=== PATIENT | female | born 1935 | race Caucasian/White ===

== ENCOUNTER 2017-04-08 09:57 | Observation (INO) | payer MEDICARE, BC ==
[~2017-04-08 09:57] MED LIST: ALBUTEROL SULF8.5 GM IH; ALDACTONE25 MG PO; ALLOPURINOL100 MG PO; ATROVENT 0.03%30 ML; BUMEX1 MG PO; COQ-10100 MG PO; COQ-1030 MG PO; COUMADIN2.5 MG PO; COUMADIN5 MG PO; DELTASONE10 MG PO; EDECRIN25 MG PO; METOPROLOL SUC100 MG PO; MICRO-K 1010 MEQ PO; MICRO-K10 MEQ PO; NYSTATIN25 GM TOP; OMEPRAZOLE20 M2 PO; OMNICEF300 MG PO; RED YEAST RICE600 MG PO; SYMBICORT 80-46.9 GM IH; SYSTANE GEL EYE10 ML OP; VITAMIN B121000 MCG PO; VITAMIN D31000 UNIT PO; [UNRECOGNIZED DRUG - OTHER]; [UNRECOGNIZED DRUG - OTHER] PO
[2017-04-08] MEDS ORDERED: NEURONTIN100 M1 PO (10:16)
[2017-04-08] MEDS ORDERED: SYMBICORT 80-41 PUFF INH (10:16)
[2017-04-08] MEDS ORDERED: POTASSIUM CHLO10 ME1 PO (10:16)
[2017-04-08] MEDS ORDERED: ALDACTONE25 M1 PO (10:17)
[2017-04-08] MEDS ORDERED: VENTOLIN HFA18 G2 INH (10:17)
[2017-04-08] MEDS ORDERED: LOPRESSOR100 M1 PO (10:18)
[2017-04-08] MEDS ORDERED: BUMETANIDE2 M2 PO (10:19)
[2017-04-08] MEDS ORDERED: ZYLOPRIM100 M1 PO (10:19)
[2017-04-08] MEDS ORDERED: IPRATROPIUM BRO30 M1 (10:21)
[2017-04-08] MEDS ORDERED: COQ-10100 M1 PO (10:21)
[2017-04-08] MEDS ORDERED: VITAMIN D31000 UNI3 PO (10:22)
[2017-04-08] MEDS ORDERED: RED YEAST RICE600 M2 PO (10:22)
[2017-04-08] MEDS ORDERED: VITAMIN B-121000 MC1 PO (10:22)
[2017-04-08] MEDS ORDERED: CLARITIN10 M6 PO (10:22)
[2017-04-08] MEDS ORDERED: TYLENOL EXTRA500 M1 PO (10:23)
[2017-04-08] MEDS ORDERED: SYSTANE 0.3-0.1 EACH EACH EYE (10:23)
[2017-04-08] MEDS ORDERED: NYSTATIN15 G1 TP (10:24)
[2017-04-08] MEDS ORDERED: COUMADIN5 M2 PO ×2 (10:25)
[2017-04-08 11:52] LABS: URINE BILIRUBIN NEGATIVE (NEG); URINE BLOOD NEGATIVE (NEG); URINE GLUCOSE (UA) NEGATIVE (NEG); URINE KETONE NEGATIVE (NEG); URINE LEUKOCYTE ESTERASE POSITIVE (NEG); URINE NITRITE POSITIVE (NEG); URINE PROTEIN NEGATIVE (NEG); URINE SPECIFIC GRAVITY 1.015 (1.003-1.030)
[2017-04-08 11:57] LABS: URINE APPEARANCE CLEAR; URINE COLOR YELLOW
[2017-04-08 12:01] LABS: URINE BACTERIA 4+; URINE EPITHELIAL CELLS 0-2 /[HPF] (0-10); URINE RBC 0 /[HPF] (0-5)
[2017-04-08 12:07] LABS: BASO % 0.4 % (0-2); EOS % 0.6 % (0-7); EOSINOPHIL ABSOLUTE COUNT 0.1 tho/cmm (0.0-0.7); HCT-HEMATOCRIT 36.2 % (34.0-49.0); HGB-HEMOGLOBIN 12.1 gm/dl (12.0-15.5); IMMATURE GRANULOCYTES ABSOLUTE 0.01 tho/cmm (0-0.03); IMMATURE GRANULOCYTES PERCENT 0.1 % (0-0.3); LYMPH % 12.8 % (20-45); LYMPH ABSOLUTE COUNT 1.1 tho/cmm (0.8-4.5); MCHC MEAN CORPUSCULAR HGB CONC 33.4 % (32.0-36.0); MCV (MEAN CELL VOLUME) 92.8 fl (82.0-96.0); MONO % 6.6 % (0-12); MONOCYTE ABSOLUTE COUNT 0.6 tho/cmm (0.0-1.2); NEUTROPHIL ABSOLUTE COUNT 6.7 tho/cmm (1.6-8.0); NEUTROPHIL-AUTOMATED 6.7 tho/cmm (1.6-8.0); NEUTROPHILS % 79.5 % (40-80); PLATELET COUNT 160 tho/cmm (150-450); RED CELL DISTRIBUTION WIDTH 13.8 % (12.4-16.4); WHITE BLOOD COUNT 8.4 tho/cmm (4.0-10.0)
[2017-04-08 12:13] LABS: INR 3.4 INR (0.9-1.1); PROTHROMBIN TIME 40.7 SECONDS (9.0-13.6)
[2017-04-08 12:20] LABS: ALB/GLOB RATIO 0.8 (0.8-2.0); ALBUMIN 3.5 g/dl (3.5-5.0); ALKALINE PHOSPHATASE 100 U/L (33-138); ALT/SGPT 20 U/L (12-78); ANION GAP 11 mmol/L (0-20); AST/SGOT 18 U/L (10-40); BILIRUBIN,TOTAL 1.4 mg/dl (0-1.5); BLOOD UREA NITROGEN 23 mg/dl (6-24); CALCIUM 9.9 mg/dl (8.5-10.5); CARBON DIOXIDE-VENOUS 32 mmol/L (22-32); CHLORIDE 98 mmol/l (96-110); CREATININE 0.84 mg/dl (0.50-1.10); GLUCOSE 167 mg/dL (70-110); POTASSIUM 4.1 mmol/L (3.7-5.1); SODIUM 137 mmol/L (135-145); eGFR VALUE FOR BLACK 77 mL/Min
[2017-04-09 05:30] LABS: INR 3.2 INR (0.9-1.1); PROTHROMBIN TIME 38.9 SECONDS (9.0-13.6)
[2017-04-09 05:32] LABS: BASO % 0.7 % (0-2); BASO ABSOLUTE COUNT 0.1 tho/cmm (0.0-0.2); EOS % 1.9 % (0-7); EOSINOPHIL ABSOLUTE COUNT 0.1 tho/cmm (0.0-0.7); HCT-HEMATOCRIT 34.2 % (34.0-49.0); HGB-HEMOGLOBIN 11.3 gm/dl (12.0-15.5); IMMATURE GRANULOCYTES ABSOLUTE 0.01 tho/cmm (0-0.03); IMMATURE GRANULOCYTES PERCENT 0.1 % (0-0.3); LYMPH % 23.8 % (20-45); LYMPH ABSOLUTE COUNT 1.6 tho/cmm (0.8-4.5); MCH (MEAN CORPUSCULAR HGB) 30.7 pg (28.0-32.0); MCV (MEAN CELL VOLUME) 92.9 fl (82.0-96.0); MEAN PLATELET VOLUME 10.2 cmc (9.4-12.4); MONO % 8.3 % (0-12); MONOCYTE ABSOLUTE COUNT 0.6 tho/cmm (0.0-1.2); NEUTROPHIL ABSOLUTE COUNT 4.4 tho/cmm (1.6-8.0); NEUTROPHIL-AUTOMATED 4.4 tho/cmm (1.6-8.0); NEUTROPHILS % 65.2 % (40-80); PLATELET COUNT 161 tho/cmm (150-450); RED BLOOD COUNT 3.68 mil/cmm (4.00-5.20); RED CELL DISTRIBUTION WIDTH 13.7 % (12.4-16.4); WHITE BLOOD COUNT 6.8 tho/cmm (4.0-10.0)
[2017-04-09 05:38] LABS: ANION GAP 10 mmol/L (0-20); BLOOD UREA NITROGEN 25 mg/dl (6-24); CALCIUM 9.3 mg/dl (8.5-10.5); CARBON DIOXIDE-VENOUS 31 mmol/L (22-32); CHLORIDE 97 mmol/l (96-110); CREATININE 0.86 mg/dl (0.50-1.10); GLUCOSE 149 mg/dL (70-110); POTASSIUM 4.2 mmol/L (3.7-5.1); SODIUM 134 mmol/L (135-145); eGFR VALUE FOR BLACK 74 mL/Min
[2017-04-09] MEDS ORDERED: LOVENOX80 MG/0.1 SC (15:25)
[2017-04-09] MEDS ORDERED: ULTRAM50 M1 PO (15:37)
[2017-04-14] MEDS ORDERED: COLACE100 M1 PO (15:41)
[2017-04-14] MEDS ORDERED: MEDS (15:43)
[2017-04-14] MEDS ORDERED: AUGMENTIN 500-1 EAC2 PO (15:44)
== END 2017-04-09 16:28 ==
LOC: EDMED 09:57 → EMR2 14:28 → CAR1 15:55
PROVIDERS: Emergency Medicine; Family Medicine; Internal Medicine; ADMIT Internal Medicine
DX: M51.17 Intervertebral disc disorders with radiculopathy, lumbosacral region (principal); J45.909 Unspecified asthma, uncomplicated; I27.2 Other secondary pulmonary hypertension; I48.2 Chronic atrial fibrillation; E11.9 Type 2 diabetes mellitus without complications; I10 Essential (primary) hypertension; N20.0 Calculus of kidney; Z79.01 Long term (current) use of anticoagulants; Z79.899 Other long term (current) drug therapy; Z88.1 Allergy status to other antibiotic agents; Z88.2 Allergy status to sulfonamides; Z88.5 Allergy status to narcotic agent; Z88.8 Allergy status to other drugs, medicaments and biological substances; Z86.718 Personal history of other venous thrombosis and embolism; Z90.710 Acquired absence of both cervix and uterus; Z98.890 Other specified postprocedural states
CPT/HCPCS: G0378; G8978-GP-CK; G8979-GP-CJ; G8980-GP-CK; G8987-GO-CK; G8988-GO-CJ; G8989-GO-CK; J2270

== ENCOUNTER 2017-04-15 09:01 | Inpatient (IN) | payer MEDICARE, BC ==
[~2017-04-15 09:01] MED LIST changes: +ALDACTONE25 M1 PO; +AUGMENTIN 500-1 EAC2 PO; +BUMETANIDE2 M2 PO; +CLARITIN10 M6 PO; +COLACE100 M1 PO; +COQ-10100 M1 PO; +COUMADIN5 M2 PO; +IPRATROPIUM BRO30 M1; +LOPRESSOR100 M1 PO; +LOVENOX80 MG/0.1 SC; +MEDS; +NEURONTIN100 M1 PO; +NYSTATIN15 G1 TP; +POTASSIUM CHLO10 ME1 PO; +RED YEAST RICE600 M2 PO; +SYMBICORT 80-41 PUFF INH; +SYSTANE 0.3-0.1 EACH EACH EYE; +TYLENOL EXTRA500 M1 PO; +ULTRAM50 M1 PO; +VENTOLIN HFA18 G2 INH; +VITAMIN B-121000 MC1 PO; +VITAMIN D31000 UNI3 PO; +ZYLOPRIM100 M1 PO
[2017-04-15] MEDS ORDERED: COUMADIN2.5 M1 PO (10:05)
[2017-04-15] MEDS ORDERED: COUMADIN5 M2 PO (10:06)
[2017-04-15 10:15] LABS: INR 1.1 INR (0.9-1.1); PROTHROMBIN TIME 12.2 SECONDS (9.0-13.6)
[2017-04-16 06:40] LABS: BASO % 0.1 % (0-2); HCT-HEMATOCRIT 33.6 % (34.0-49.0); HGB-HEMOGLOBIN 11.2 gm/dl (12.0-15.5); IMMATURE GRANULOCYTES ABSOLUTE 0.02 tho/cmm (0-0.03); IMMATURE GRANULOCYTES PERCENT 0.2 % (0-0.3); LYMPH % 8.7 % (20-45); LYMPH ABSOLUTE COUNT 0.8 tho/cmm (0.8-4.5); MCH (MEAN CORPUSCULAR HGB) 30.7 pg (28.0-32.0); MCHC MEAN CORPUSCULAR HGB CONC 33.3 % (32.0-36.0); MCV (MEAN CELL VOLUME) 92.1 fl (82.0-96.0); MEAN PLATELET VOLUME 9.9 cmc (9.4-12.4); MONO % 9.7 % (0-12); MONOCYTE ABSOLUTE COUNT 0.9 tho/cmm (0.0-1.2); NEUTROPHIL ABSOLUTE COUNT 7.7 tho/cmm (1.6-8.0); NEUTROPHIL-AUTOMATED 7.7 tho/cmm (1.6-8.0); NEUTROPHILS % 81.3 % (40-80); PLATELET COUNT 175 tho/cmm (150-450); RED BLOOD COUNT 3.65 mil/cmm (4.00-5.20); RED CELL DISTRIBUTION WIDTH 13.7 % (12.4-16.4); WHITE BLOOD COUNT 9.4 tho/cmm (4.0-10.0)
[2017-04-16 06:52] LABS: ALB/GLOB RATIO 0.7 (0.8-2.0); ALBUMIN 3.1 g/dl (3.5-5.0); ALKALINE PHOSPHATASE 80 U/L (33-138); ALT/SGPT 26 U/L (12-78); ANION GAP 14 mmol/L (0-20); AST/SGOT 22 U/L (10-40); BILIRUBIN,TOTAL 0.7 mg/dl (0-1.5); BLOOD UREA NITROGEN 24 mg/dl (6-24); CALCIUM 9.5 mg/dl (8.5-10.5); CARBON DIOXIDE-VENOUS 29 mmol/L (22-32); CHLORIDE 94 mmol/l (96-110); CREATININE 1.05 mg/dl (0.50-1.10); GLUCOSE 202 mg/dL (70-110); POTASSIUM 4.3 mmol/L (3.7-5.1); SODIUM 133 mmol/L (135-145); eGFR VALUE FOR BLACK 58 mL/Min
[2017-04-16] MEDS ORDERED: NORCO 5-325 TA1 EACH PO (12:31)
[2017-04-16] MEDS ORDERED: SENOKOT-S TABL1 EACH PO (12:32)
== END 2017-04-16 15:04 | disposition home health service (06) | DRG 519 ==
LOC: SHSC 09:01 → ORE 10:49 → PACU 13:09 → 5EA 13:27 → 5EB 13:30
PROVIDERS: Anesthesiology; Internal Medicine; ADMIT Orthopaedic Surgery Orthopaedic Surgery of the Spine
PROC: 0SB40ZZ Excision of Lumbosacral Disc, Open Approach (ICD-10-PCS; principal; 2017-04-15)
PROC: 00NY0ZZ Release Lumbar Spinal Cord, Open Approach (ICD-10-PCS; 2017-04-15)
DX: M51.17 Intervertebral disc disorders with radiculopathy, lumbosacral region (principal); I50.30 Unspecified diastolic (congestive) heart failure; E11.22 Type 2 diabetes mellitus with diabetic chronic kidney disease; I13.0 Hypertensive heart and chronic kidney disease with heart failure and stage 1 through stage 4 chronic kidney disease, or unspecified chronic kidney disease; Z79.01 Long term (current) use of anticoagulants; I48.91 Unspecified atrial fibrillation; E11.40 Type 2 diabetes mellitus with diabetic neuropathy, unspecified; N18.3 Chronic kidney disease, stage 3 (moderate); Z86.718 Personal history of other venous thrombosis and embolism; Z99.3 Dependence on wheelchair; I27.2 Other secondary pulmonary hypertension; Z88.1 Allergy status to other antibiotic agents; Z88.2 Allergy status to sulfonamides; Z88.8 Allergy status to other drugs, medicaments and biological substances; E53.8 Deficiency of other specified B group vitamins; E55.9 Vitamin D deficiency, unspecified

== ENCOUNTER 2017-05-02 11:32 | Inpatient (IN) | payer MEDICARE, BC ==
[~2017-05-02 11:32] MED LIST changes: +COUMADIN2.5 M1 PO; +NORCO 5-325 TA1 EACH PO; +SENOKOT-S TABL1 EACH PO
[2017-05-02] MEDS ORDERED: ZYLOPRIM100 M1 PO (12:07)
[2017-05-02] MEDS ORDERED: CO Q-10100 M2 PO (12:08)
[2017-05-02] MEDS ORDERED: [UNRECOGNIZED DRUG - OTHER] PO (12:09)
[2017-05-02] MEDS ORDERED: CLARITIN10 M6 PO (12:10)
[2017-05-02] MEDS ORDERED: POTASSIUM CHLO20 ME3 PO (12:10)
[2017-05-02] MEDS ORDERED: LOPRESSOR100 M1 PO (12:10)
[2017-05-02] MEDS ORDERED: NEURONTIN100 M1 PO (12:10)
[2017-05-02] MEDS ORDERED: SYMBICORT 80-41 PUFF INH (12:11)
[2017-05-02] MEDS ORDERED: RED YEAST RICE600 M2 PO (12:11)
[2017-05-02] MEDS ORDERED: SYSTANE 0.3-0.415 ML OP (12:11)
[2017-05-02] MEDS ORDERED: ALDACTONE25 M1 PO (12:11)
[2017-05-02 12:12] LABS: BASO % 0.6 % (0-2); BASO ABSOLUTE COUNT 0.1 tho/cmm (0.0-0.2); EOS % 2.5 % (0-7); EOSINOPHIL ABSOLUTE COUNT 0.2 tho/cmm (0.0-0.7); HCT-HEMATOCRIT 32.1 % (34.0-49.0); HGB-HEMOGLOBIN 10.8 gm/dl (12.0-15.5); IMMATURE GRANULOCYTES ABSOLUTE 0.02 tho/cmm (0-0.03); IMMATURE GRANULOCYTES PERCENT 0.2 % (0-0.3); LYMPH % 16.3 % (20-45); LYMPH ABSOLUTE COUNT 1.6 tho/cmm (0.8-4.5); MCH (MEAN CORPUSCULAR HGB) 30.9 pg (28.0-32.0); MCHC MEAN CORPUSCULAR HGB CONC 33.6 % (32.0-36.0); MCV (MEAN CELL VOLUME) 91.7 fl (82.0-96.0); MEAN PLATELET VOLUME 9.5 cmc (9.4-12.4); MONO % 10.2 % (0-12); NEUTROPHIL ABSOLUTE COUNT 6.7 tho/cmm (1.6-8.0); NEUTROPHIL-AUTOMATED 6.7 tho/cmm (1.6-8.0); NEUTROPHILS % 70.2 % (40-80); PLATELET COUNT 259 tho/cmm (150-450); RED CELL DISTRIBUTION WIDTH 14.6 % (12.4-16.4); WHITE BLOOD COUNT 9.5 tho/cmm (4.0-10.0)
[2017-05-02] MEDS ORDERED: DEMADEX20 M1 PO (12:12)
[2017-05-02] MEDS ORDERED: VITAMIN D31000 UNI4 PO (12:12)
[2017-05-02] MEDS ORDERED: VITAMIN B-121000 MC1 PO (12:12)
[2017-05-02] MEDS ORDERED: COUMADIN5 M2 PO (12:13)
[2017-05-02] MEDS ORDERED: COLACE100 M1 PO (12:14)
[2017-05-02] MEDS ORDERED: HYDROCODON-ACE1 EA16 PO (12:14)
[2017-05-02] MEDS ORDERED: CYCLOBENZAPRINE10 M1 PO (12:14)
[2017-05-02] MEDS ORDERED: NYSTATIN15 G1 TP (12:15)
[2017-05-02] MEDS ORDERED: IPRATROPIUM BRO30 M1 (12:15)
[2017-05-02 12:16] LABS: INR 1.5 INR (0.9-1.1); PROTHROMBIN TIME 18.2 SECONDS (9.0-13.6)
[2017-05-02] MEDS ORDERED: VENTOLIN HFA18 G2 INH (12:16)
[2017-05-02] MEDS ORDERED: ULTRAM50 M1 PO (12:16)
[2017-05-02] MEDS ORDERED: SENEXON-S TABL1 EAC1 PO (12:16)
[2017-05-02 12:36] LABS: ANION GAP 13 mmol/L (0-20); BLOOD UREA NITROGEN 26 mg/dl (6-24); CALCIUM 10.5 mg/dl (8.5-10.5); CARBON DIOXIDE-VENOUS 30 mmol/L (22-32); CHLORIDE 93 mmol/l (96-110); CREATININE 0.97 mg/dl (0.50-1.10); GLUCOSE 189 mg/dL (70-110); MAGNESIUM 2.2 mg/dl (1.8-2.6); POTASSIUM 4.3 mmol/L (3.7-5.1); SODIUM 132 mmol/L (135-145); eGFR VALUE FOR BLACK 64 mL/Min
[2017-05-02 18:08] LABS: URINE BILIRUBIN NEGATIVE (NEG); URINE BLOOD NEGATIVE (NEG); URINE GLUCOSE (UA) NEGATIVE (NEG); URINE KETONE NEGATIVE (NEG); URINE LEUKOCYTE ESTERASE NEGATIVE (NEG); URINE NITRITE NEGATIVE (NEG); URINE PROTEIN NEGATIVE (NEG); URINE SPECIFIC GRAVITY 1.005 (1.003-1.030)
[2017-05-02 18:09] LABS: URINE APPEARANCE CLEAR; URINE COLOR YELLOW
[2017-05-02 21:22] LABS: ALB/GLOB RATIO 0.6 (0.8-2.0); ALBUMIN 2.7 g/dl (3.5-5.0); ALKALINE PHOSPHATASE 102 U/L (33-138); ALT/SGPT 18 U/L (12-78); AST/SGOT 16 U/L (10-40); BILIRUBIN,DIRECT 0.2 mg/dl (0.0-0.3); BILIRUBIN,INDIRECT 0.4 mg/dL (0.0-1.0); BILIRUBIN,TOTAL 0.6 mg/dl (0-1.5); C-REACTIVE PROTEIN 4.5 mg/dl (0-0.9)
[2017-05-02 21:37] LABS: PROCALCITONIN 0.08 ng/ml (0.05-0.09)
[2017-05-02 23:07] LABS: URINE BILIRUBIN NEGATIVE (NEG); URINE BLOOD NEGATIVE (NEG); URINE GLUCOSE (UA) NEGATIVE (NEG); URINE KETONE NEGATIVE (NEG); URINE LEUKOCYTE ESTERASE NEGATIVE (NEG); URINE NITRITE NEGATIVE (NEG); URINE PH 6.5 (5.0-8.0); URINE PROTEIN NEGATIVE (NEG)
[2017-05-02 23:18] LABS: URINE COLOR YELLOW
[2017-05-02 23:19] LABS: URINE APPEARANCE HAZY; URINE EPITHELIAL CELLS 0 /[HPF] (0-10); URINE RBC 0 /[HPF] (0-5); URINE WBC 0-1 /[HPF] (0-5)
[2017-05-02 23:56] LABS: URINE CREATININE-RANDOM 42 mg/dl (30-125); URINE SODIUM-RANDOM 45 mmol/L (20-110)
[2017-05-03 05:31] LABS: INR 1.5 INR (0.9-1.1); PROTHROMBIN TIME 17.7 SECONDS (9.0-13.6)
[2017-05-03 05:41] LABS: ANION GAP 14 mmol/L (0-20); BLOOD UREA NITROGEN 24 mg/dl (6-24); CALCIUM 9.5 mg/dl (8.5-10.5); CARBON DIOXIDE-VENOUS 31 mmol/L (22-32); CHLORIDE 96 mmol/l (96-110); CHOLESTEROL 146 mg/dl (120-200); CREATININE 0.96 mg/dl (0.50-1.10); GLUCOSE 151 mg/dL (70-110); HDL CHOLESTEROL 60 mg/dl (40-60); LDL CHOLESTEROL 69 mg/dl (0-99); POTASSIUM 3.6 mmol/L (3.7-5.1); SODIUM 137 mmol/L (135-145); TRIGLYCERIDES 87 mg/dl (<149); VLDL 17 mg/dl (0-30); eGFR VALUE FOR BLACK 65 mL/Min
[2017-05-03 09:42] LABS: BASO % 0.6 % (0-2); EOS % 3.5 % (0-7); EOSINOPHIL ABSOLUTE COUNT 0.2 tho/cmm (0.0-0.7); HCT-HEMATOCRIT 26.3 % (34.0-49.0); HGB-HEMOGLOBIN 8.7 gm/dl (12.0-15.5); IMMATURE GRANULOCYTES ABSOLUTE 0.02 tho/cmm (0-0.03); IMMATURE GRANULOCYTES PERCENT 0.3 % (0-0.3); LYMPH % 21.9 % (20-45); LYMPH ABSOLUTE COUNT 1.5 tho/cmm (0.8-4.5); MCH (MEAN CORPUSCULAR HGB) 30.3 pg (28.0-32.0); MCHC MEAN CORPUSCULAR HGB CONC 33.1 % (32.0-36.0); MCV (MEAN CELL VOLUME) 91.6 fl (82.0-96.0); MEAN PLATELET VOLUME 9.9 cmc (9.4-12.4); MONO % 12.1 % (0-12); MONOCYTE ABSOLUTE COUNT 0.8 tho/cmm (0.0-1.2); NEUTROPHIL ABSOLUTE COUNT 4.2 tho/cmm (1.6-8.0); NEUTROPHIL-AUTOMATED 4.2 tho/cmm (1.6-8.0); NEUTROPHILS % 61.6 % (40-80); PLATELET COUNT 223 tho/cmm (150-450); RED BLOOD COUNT 2.87 mil/cmm (4.00-5.20); RED CELL DISTRIBUTION WIDTH 14.4 % (12.4-16.4); WHITE BLOOD COUNT 6.8 tho/cmm (4.0-10.0)
[2017-05-04 04:05] LABS: INR 1.9 INR (0.9-1.1)
[2017-05-04 04:35] LABS: ANION GAP 14 mmol/L (0-20); BLOOD UREA NITROGEN 23 mg/dl (6-24); CALCIUM 9.7 mg/dl (8.5-10.5); CARBON DIOXIDE-VENOUS 31 mmol/L (22-32); CHLORIDE 92 mmol/l (96-110); CREATININE 1.13 mg/dl (0.50-1.10); GLUCOSE 189 mg/dL (70-110); POTASSIUM 3.5 mmol/L (3.7-5.1); SODIUM 133 mmol/L (135-145); eGFR VALUE FOR BLACK 54 mL/Min
[2017-05-05 05:25] LABS: BASO % 0.8 % (0-2); BASO ABSOLUTE COUNT 0.1 tho/cmm (0.0-0.2); EOS % 3.9 % (0-7); EOSINOPHIL ABSOLUTE COUNT 0.3 tho/cmm (0.0-0.7); HCT-HEMATOCRIT 26.6 % (34.0-49.0); HGB-HEMOGLOBIN 8.8 gm/dl (12.0-15.5); IMMATURE GRANULOCYTES ABSOLUTE 0.03 tho/cmm (0-0.03); IMMATURE GRANULOCYTES PERCENT 0.3 % (0-0.3); LYMPH % 18.8 % (20-45); LYMPH ABSOLUTE COUNT 1.6 tho/cmm (0.8-4.5); MCH (MEAN CORPUSCULAR HGB) 30.1 pg (28.0-32.0); MCHC MEAN CORPUSCULAR HGB CONC 33.1 % (32.0-36.0); MCV (MEAN CELL VOLUME) 91.1 fl (82.0-96.0); MEAN PLATELET VOLUME 9.5 cmc (9.4-12.4); MONO % 8.8 % (0-12); MONOCYTE ABSOLUTE COUNT 0.8 tho/cmm (0.0-1.2); NEUTROPHIL ABSOLUTE COUNT 5.9 tho/cmm (1.6-8.0); NEUTROPHIL-AUTOMATED 5.9 tho/cmm (1.6-8.0); NEUTROPHILS % 67.4 % (40-80); PLATELET COUNT 201 tho/cmm (150-450); RED BLOOD COUNT 2.92 mil/cmm (4.00-5.20); RED CELL DISTRIBUTION WIDTH 14.7 % (12.4-16.4); WHITE BLOOD COUNT 8.7 tho/cmm (4.0-10.0)
[2017-05-05 05:41] LABS: ALB/GLOB RATIO 0.7 (0.8-2.0); ALBUMIN 3.1 g/dl (3.5-5.0); ALKALINE PHOSPHATASE 86 U/L (33-138); ALT/SGPT 15 U/L (12-78); ANION GAP 15 mmol/L (0-20); AST/SGOT 13 U/L (10-40); BLOOD UREA NITROGEN 26 mg/dl (6-24); CALCIUM 9.6 mg/dl (8.5-10.5); CARBON DIOXIDE-VENOUS 28 mmol/L (22-32); CHLORIDE 94 mmol/l (96-110); CREATININE 1.25 mg/dl (0.50-1.10); GLUCOSE 138 mg/dL (70-110); PHOSPHOROUS 2.9 mg/dl (2.5-4.9); POTASSIUM 3.9 mmol/L (3.7-5.1); PREALBUMIN 12.6 mg/dl (20.0-40.0); SODIUM 133 mmol/L (135-145); eGFR VALUE FOR BLACK 47 mL/Min
[2017-05-05 05:46] LABS: INR 2.8 INR (0.9-1.1); PROTHROMBIN TIME 33.5 SECONDS (9.0-13.6)
[2017-05-05 07:03] LABS: PROCALCITONIN 0.11 ng/ml (0.05-0.09)
[2017-05-06 06:10] LABS: BASO % 0.9 % (0-2); BASO ABSOLUTE COUNT 0.1 tho/cmm (0.0-0.2); EOS % 4.2 % (0-7); EOSINOPHIL ABSOLUTE COUNT 0.4 tho/cmm (0.0-0.7); HCT-HEMATOCRIT 27.1 % (34.0-49.0); IMMATURE GRANULOCYTES ABSOLUTE 0.03 tho/cmm (0-0.03); IMMATURE GRANULOCYTES PERCENT 0.3 % (0-0.3); LYMPH % 14.9 % (20-45); LYMPH ABSOLUTE COUNT 1.3 tho/cmm (0.8-4.5); MCH (MEAN CORPUSCULAR HGB) 30.2 pg (28.0-32.0); MCHC MEAN CORPUSCULAR HGB CONC 33.2 % (32.0-36.0); MCV (MEAN CELL VOLUME) 90.9 fl (82.0-96.0); MEAN PLATELET VOLUME 9.6 cmc (9.4-12.4); MONO % 7.7 % (0-12); MONOCYTE ABSOLUTE COUNT 0.7 tho/cmm (0.0-1.2); NEUTROPHIL ABSOLUTE COUNT 6.3 tho/cmm (1.6-8.0); NEUTROPHIL-AUTOMATED 6.3 tho/cmm (1.6-8.0); PLATELET COUNT 220 tho/cmm (150-450); RED BLOOD COUNT 2.98 mil/cmm (4.00-5.20); RED CELL DISTRIBUTION WIDTH 14.6 % (12.4-16.4); WHITE BLOOD COUNT 8.8 tho/cmm (4.0-10.0)
[2017-05-06 06:25] LABS: ALBUMIN 3.1 g/dl (3.5-5.0); ANION GAP 13 mmol/L (0-20); BLOOD UREA NITROGEN 29 mg/dl (6-24); C-REACTIVE PROTEIN 5.8 mg/dl (0-0.9); CALCIUM 9.9 mg/dl (8.5-10.5); CARBON DIOXIDE-VENOUS 29 mmol/L (22-32); CHLORIDE 93 mmol/l (96-110); CREATININE 1.37 mg/dl (0.50-1.10); GLUCOSE 146 mg/dL (70-110); INR 3.6 INR (0.9-1.1); POTASSIUM 4.3 mmol/L (3.7-5.1); PROTHROMBIN TIME 43.2 SECONDS (9.0-13.6); SODIUM 131 mmol/L (135-145); eGFR VALUE FOR BLACK 42 mL/Min
[2017-05-06 06:59] LABS: PROCALCITONIN 0.14 ng/ml (0.05-0.09)
[2017-05-07 05:14] LABS: BASO ABSOLUTE COUNT 0.1 tho/cmm (0.0-0.2); EOS % 5.6 % (0-7); EOSINOPHIL ABSOLUTE COUNT 0.5 tho/cmm (0.0-0.7); HCT-HEMATOCRIT 30.1 % (34.0-49.0); HGB-HEMOGLOBIN 9.9 gm/dl (12.0-15.5); IMMATURE GRANULOCYTES ABSOLUTE 0.03 tho/cmm (0-0.03); IMMATURE GRANULOCYTES PERCENT 0.3 % (0-0.3); LYMPH % 16.2 % (20-45); LYMPH ABSOLUTE COUNT 1.5 tho/cmm (0.8-4.5); MCH (MEAN CORPUSCULAR HGB) 29.9 pg (28.0-32.0); MCHC MEAN CORPUSCULAR HGB CONC 32.9 % (32.0-36.0); MCV (MEAN CELL VOLUME) 90.9 fl (82.0-96.0); MEAN PLATELET VOLUME 9.5 cmc (9.4-12.4); MONO % 6.3 % (0-12); MONOCYTE ABSOLUTE COUNT 0.6 tho/cmm (0.0-1.2); NEUTROPHIL ABSOLUTE COUNT 6.5 tho/cmm (1.6-8.0); NEUTROPHIL-AUTOMATED 6.5 tho/cmm (1.6-8.0); NEUTROPHILS % 70.6 % (40-80); PLATELET COUNT 243 tho/cmm (150-450); RED BLOOD COUNT 3.31 mil/cmm (4.00-5.20); RED CELL DISTRIBUTION WIDTH 14.6 % (12.4-16.4); WHITE BLOOD COUNT 9.1 tho/cmm (4.0-10.0)
[2017-05-07 05:18] LABS: INR 3.8 INR (0.9-1.1); PROTHROMBIN TIME 46.3 SECONDS (9.0-13.6)
[2017-05-07 05:30] LABS: ANION GAP 12 mmol/L (0-20); BLOOD UREA NITROGEN 32 mg/dl (6-24); C-REACTIVE PROTEIN 3.3 mg/dl (0-0.9); CALCIUM 10.1 mg/dl (8.5-10.5); CARBON DIOXIDE-VENOUS 29 mmol/L (22-32); CHLORIDE 96 mmol/l (96-110); CREATININE 1.39 mg/dl (0.50-1.10); GLUCOSE 133 mg/dL (70-110); SODIUM 133 mmol/L (135-145); eGFR VALUE FOR BLACK 42 mL/Min
[2017-05-07 06:36] LABS: PROCALCITONIN 0.13 ng/ml (0.05-0.09)
[2017-05-07 16:42] LABS: INR 3.3 INR (0.9-1.1); PROTHROMBIN TIME 39.7 SECONDS (9.0-13.6)
[2017-05-08 05:04] LABS: INR 2.8 INR (0.9-1.1)
[2017-05-08 05:11] LABS: ANION GAP 13 mmol/L (0-20); BLOOD UREA NITROGEN 40 mg/dl (6-24); C-REACTIVE PROTEIN 2.2 mg/dl (0-0.9); CALCIUM 9.9 mg/dl (8.5-10.5); CARBON DIOXIDE-VENOUS 27 mmol/L (22-32); CHLORIDE 94 mmol/l (96-110); CREATININE 1.33 mg/dl (0.50-1.10); GLUCOSE 141 mg/dL (70-110); POTASSIUM 3.5 mmol/L (3.7-5.1); SODIUM 130 mmol/L (135-145); eGFR VALUE FOR BLACK 44 mL/Min
[2017-05-08 05:13] LABS: BASO % 0.7 % (0-2); BASO ABSOLUTE COUNT 0.1 tho/cmm (0.0-0.2); EOS % 4.3 % (0-7); EOSINOPHIL ABSOLUTE COUNT 0.5 tho/cmm (0.0-0.7); HCT-HEMATOCRIT 30.6 % (34.0-49.0); HGB-HEMOGLOBIN 10.2 gm/dl (12.0-15.5); IMMATURE GRANULOCYTES ABSOLUTE 0.02 tho/cmm (0-0.03); IMMATURE GRANULOCYTES PERCENT 0.2 % (0-0.3); LYMPH % 13.7 % (20-45); LYMPH ABSOLUTE COUNT 1.5 tho/cmm (0.8-4.5); MCH (MEAN CORPUSCULAR HGB) 30.2 pg (28.0-32.0); MCHC MEAN CORPUSCULAR HGB CONC 33.3 % (32.0-36.0); MCV (MEAN CELL VOLUME) 90.5 fl (82.0-96.0); MEAN PLATELET VOLUME 9.7 cmc (9.4-12.4); MONO % 8.7 % (0-12); NEUTROPHIL ABSOLUTE COUNT 8.1 tho/cmm (1.6-8.0); NEUTROPHIL-AUTOMATED 8.1 tho/cmm (1.6-8.0); NEUTROPHILS % 72.4 % (40-80); PLATELET COUNT 256 tho/cmm (150-450); RED BLOOD COUNT 3.38 mil/cmm (4.00-5.20); RED CELL DISTRIBUTION WIDTH 14.5 % (12.4-16.4); WHITE BLOOD COUNT 11.1 tho/cmm (4.0-10.0)
[2017-05-08] MEDS ORDERED: CLEOCIN HCL300 M1 PO (11:05)
[2017-05-08] MEDS ORDERED: COZAAR25 M1 PO (11:37)
== END 2017-05-08 13:15 | DRG 602 ==
LOC: EDMED 11:32 → EMR2 16:00 → PCUA 19:40
PROVIDERS: Emergency Medicine; Internal Medicine Infectious Disease; Internal Medicine Interventional Cardiology; Physician Assistant; ADMIT Internal Medicine Cardiovascular Disease
PROC: 02HV33Z Insertion of Infusion Device into Superior Vena Cava, Percutaneous Approach (ICD-10-PCS; principal; 2017-05-03)
DX: L03.116 Cellulitis of left lower limb (principal); I50.33 Acute on chronic diastolic (congestive) heart failure; E11.22 Type 2 diabetes mellitus with diabetic chronic kidney disease; I27.2 Other secondary pulmonary hypertension; E87.1 Hypo-osmolality and hyponatremia; I13.0 Hypertensive heart and chronic kidney disease with heart failure and stage 1 through stage 4 chronic kidney disease, or unspecified chronic kidney disease; Z86.718 Personal history of other venous thrombosis and embolism; J44.9 Chronic obstructive pulmonary disease, unspecified; E66.9 Obesity, unspecified; Z88.2 Allergy status to sulfonamides; Z88.8 Allergy status to other drugs, medicaments and biological substances; Z79.01 Long term (current) use of anticoagulants; N18.3 Chronic kidney disease, stage 3 (moderate); I87.2 Venous insufficiency (chronic) (peripheral); Z68.35 Body mass index [BMI] 35.0-35.9, adult; E87.6 Hypokalemia; I48.2 Chronic atrial fibrillation
CPT/HCPCS: C1751; G0378; G8978-GP-CK; G8979-GP-CJ; G8987-GO-CJ; G8988-GO-CI; J1644; J1815; J2543; J3370; J7050; P9047